=== PATIENT | male | born 1990 | race Caucasian/White ===

== ENCOUNTER 2018-07-19 18:15 | Emergency (ER) | payer OTHER ==
[~2018-07-19] VITALS: Ht 175.3 cm; Wt 91.0 kg
--- NOTE | 2018-07-19 18:36 | NUR ---
YAMIL ANTHONY AT BEDSIDE.
[2018-07-19] MEDS ORDERED: LACT10SO28 PO (18:42)
[2018-07-19] MEDS ORDERED: KETOROLAC 30 MG/1 ML ONE (18:45)
[2018-07-19] MEDS ORDERED: KETOROLAC 30 MG/1 ML IM ONE (19:00)
[2018-07-19 19:06] LABS: ALANINE AMINOTRANSFERASE 183 U/L (12-78); ALBUMIN 4.2 g/dL (3.4-5.0); ANION GAP 7 mmol/L (5-15); CHLORIDE 112 mmol/L (98-107)
[2018-07-19 19:08] LABS: ALKALINE PHOSPHATASE 103 U/L (45-117); BILIRUBIN,TOTAL 1.3 mg/dL (0.2-1.0); CREATININE 1.32 mg/dL (0.7-1.3); TOTAL PROTEIN 7.5 g/dL (6.4-8.2)
--- NOTE | 2018-07-19 19:10 | NUR ---
REPORT RECEIVED FROM KIM GRANADOS. ASSUMED CARE OF PT. PT IN IMAGING AT THIS TIME.
--- NOTE | 2018-07-19 19:23 | NUR ---
PT BACK FROM US, GUARDS AT BEDSIDE. DENIES ANY NEEDS AT THIS TIME. AWAITING US READ AT THIS TIME
[2018-07-19 19:40] LABS: MEAN CORPUSCULAR HGB CONC 33.8 g/dL (33.2-36.2); MEAN CORPUSCULAR VOLUME 85.8 fL (81-97); MEAN PLATELET VOLUME 7.8 fL (7.4-10.4); PLATELET COUNT 212 x10^3/uL (130-400); RED BLOOD COUNT 5.17 x10^6/uL (4.38-5.82); RED CELL DISTRIBUTION WIDTH 13.3 % (9.4-14.8)
[2018-07-19 19:41] LABS: MD YES
[2018-07-19 19:43] LABS: <PLATELET ESTIMATE> ADEQUATE; <PLT MORPHOLOGY> NORMAL PLT MORPH; <RBC MORPHOLOGY> NORMAL; BAND#(MANUAL) 0.04 x10^3/uL; BANDS%(MANUAL) 1 % (0-7); BASOS#(MANUAL) 0.04 x10^3/uL (0-0.1); BASOS% (MANUAL) 1 % (0-1); EOS#(MANUAL) 0.09 x10^3/uL (0.0-0.4); EOS% (MANUAL) 2 % (1-7); LYMPH#(MANUAL) 1.63 x10^3/uL (1-3.4); LYMPHS% (MANUAL) 38 % (22-44); MONOS#(MANUAL) 0.34 x10^3/uL (0.3-2.7); MONOS% (MANUAL) 8 % (2-9); SEG#(MANUAL) 2.15 x10^3/uL (1.8-6.8); SEGS% (MANUAL) 50 % (42-75)
[2018-07-19 20:10] VITALS: BP 128/74
--- NOTE | 2018-07-19 20:16 | NUR ---
Patient/Caregiver given discharge instructions and they have confirmed that they understand the instructions. Patient ambulatory with steady gait.
== END 2018-07-19 20:29 | disposition home or self-care (01) ==
LOC: ED 20:23
DX: K29.00 Acute gastritis without bleeding (principal); Z86.19 Personal history of other infectious and parasitic diseases
CPT/HCPCS: 36415; 76700; 80053; 83690; 85025; 96372; 99284; J1885